=== PATIENT | male | born 1960 | race Caucasian/White ===

== ENCOUNTER 2016-08-09 08:30 | Day surgery (SDC) | payer BC ==
--- NOTE | ~2016-08-09 | EGD ---
EGD REPORT [facility] [address] [place] [address] NAME: REJI ANN : [birth year] [place]US : [place] [facility] [place] [id number] AGE: 56 ADM/REG DATE : 08/09/16 MR#: [id number] REPORT SERV DATE: 08/09/16 DICTATED BY: CARLOS MILLER DATE: 08/09/16 REPORT STATUS : Draft [facility] DATE: 08/09/16 Endoscopy Center Patient Name: Reji Ann Date of : 1960 Attending MD: CARLOS MILLER MD Procedure Date No Time: 08/09/2016 Procedure: Colonoscopy Indications: High risk colon cancer surveillance: Personal history of colonic polyps Referring MD: DEANDRA CADE MD Medicines: as per anesthesia Complications: No immediate complications. Procedure: Pre-Anesthesia Assessment: - ASA Grade Assessment: II - A patient with mild systemic disease. After I obtained informed consent, the scope was passed under direct vision. Throughout the procedure, the patient's blood pressure, pulse, and oxygen saturations were monitored continuously. The PCF [id number] was introduced through the anus and advanced to the cecum, identified by appendiceal orifice and ileocecal valve. The colonoscopy was performed without difficulty. The patient tolerated the procedure well. The quality of the bowel preparation was adequate to identify polyps. Findings: The perianal and digital rectal examinations were normal. A few small and large-mouthed diverticula were found in the sigmoid colon. Internal hemorrhoids were found during endoscopy and were mild. Impression: - Diverticulosis in the sigmoid colon. - Internal hemorrhoids. Recommendation: - Repeat colonoscopy in 5 years for surveillance. Procedure Code(s): --- Professional --- 56958, Colonoscopy, flexible, proximal to splenic flexure; diagnostic, with or without collection of specimen(s) by brushing or washing, with or without colon decompression (separate procedure) Diagnosis Code(s): --- Professional --- K64.8, Other hemorrhoids K57.30, Diverticulosis of large intestine without EGD REPORT [facility] [address] [place] [address] [place] [address] NAME: REJI ANN : [birth year] [place] [facility] [place]#: [id number] AGE: 56 ADM/REG DATE : 08/09/16 MR#: [id number] REPORT SERV DATE: 08/09/16 DICTATED BY: CARLOS MILLER. DATE: 08/09/16 REPORT STATUS : Draft TRANSCRIBED BY: [employer] DATE: 08/09/16 perforation or abscess without bleeding Z86.010, Personal history of colonic polyps CPT copyright 2013 [employer]. All rights reserved. The codes documented in this report are preliminary and upon basket braider review may be revised to meet current compliance requirements. CARLOS MILLER MD 08/09/2016 11:03 AM This report has been signed electronically. Number of Addenda: 0 Note Initiated On: 08/09/2016 10:17 AM Scope Withdrawal Time 0 hours 13 minutes [address] [place] [address] [place] [address]
--- NOTE | ~2016-08-09 | EGD ---
EGD REPORT [facility] [address] [place] [address] NAME: REJI ANN : [birth year] STATUS : REG [facility] [place] PAT#: [id number] AGE: 56 ADM/REG DATE : 08/09/16 MR#: [id number] REPORT SERV DATE: 08/09/16 DICTATED BY: CARLOS MILLER DATE: 08/09/16 REPORT STATUS : Draft TRANSCRIBED BY: [facility] DATE: 08/09/16 Endoscopy Center Patient Name: Reji Ann Date of : 1960 Attending MD: CARLOS MILLER MD Procedure Date No Time: 08/09/2016 Procedure: Upper GI endoscopy Indications: Dysphagia Referring MD: DEANDRA CADE MD Medicines: as per anesthesia Complications: No immediate complications. Procedure: Pre-Anesthesia Assessment: - ASA Grade Assessment: II - A patient with mild systemic disease. - ASA Grade Assessment: II - A patient with mild systemic disease. - ASA Grade Assessment: II - A patient with mild systemic disease. After obtaining informed consent, the endoscope was passed under direct vision. Throughout the procedure, the patient's blood pressure, pulse, and oxygen saturations were monitored continuously. The GIF H190 [id number] was introduced through the mouth, and advanced to the third part of duodenum. The upper GI endoscopy was accomplished without difficulty. The upper GI endoscopy was accomplished without difficulty. The patient tolerated the procedure well. Findings: A moderate Schatzki ring (acquired) was found at the gastroesophageal junction. The scope was withdrawn. Dilation was performed with a George dilator with no resistance at 48 Fr. The entire examined stomach was normal. The cardia and gastric fundus were normal on retroflexion. Localized mild inflammation characterized by erythema was found in the duodenal bulb. Impression: - Moderate Schatzki ring. Dilated. - Normal stomach. - Duodenitis. Recommendation: - Continue present medications. Procedure Code(s): --- Professional --- 97556, Esophagogastroduodenoscopy, flexible, transoral; EGD REPORT [facility] [address] [place] [address] NAME: REJI ANN : [birth year] STATUS : REG [facility]#: [id number] AGE: 56 ADM/REG DATE : 08/09/16 MR#: [id number] REPORT SERV DATE: 08/09/16 DICTATED BY: CARLOS MILLER. DATE: 08/09/16 REPORT STATUS : Draft TRANSCRIBED BY: [facility] DATE: 08/09/16 diagnostic, including collection of specimen(s) by brushing or washing, when performed (separate procedure) 27524, Dilation of esophagus, by unguided sound or bougie, single or multiple passes Diagnosis Code(s): --- Professional --- K22.2, Esophageal obstruction K29.80, Duodenitis without bleeding R13.10, Dysphagia, unspecified CPT copyright 2013 [employer]. All rights reserved. The codes documented in this report are preliminary and upon professional fee coder review may be revised to meet current compliance requirements. CARLOS MILLER MD 08/09/2016 10:39 AM This report has been signed electronically. Number of Addenda: 0 Note Initiated On: 08/09/2016 10:18 AM Scope Withdrawal Time 0 hours 0 minutes 0 seconds [id number] [place] [address]
[~2016-08-09 08:30] MED LIST: ASAB PO; DSS PO; FISH-EPA1000 MG PO; MULTIPLE VIT PO; NEXIUM40 PO; NIACIN 500 PO; VYTORIN 10/40 T1 TAB PO; Z100 PO
== END 2016-08-09 23:59 | disposition home or self-care (01) ==
LOC: DMU 08:30
PROVIDERS: Internal Medicine Gastroenterology
PROC: 0DJD8ZZ Inspection of Lower Intestinal Tract, Via Natural or Artificial Opening Endoscopic (ICD-10-PCS; principal; 2016-08-09 12:00)
PROC: 0D747ZZ Dilation of Esophagogastric Junction, Via Natural or Artificial Opening (ICD-10-PCS; 2016-08-09 12:00)
DX: Z12.11 Encounter for screening for malignant neoplasm of colon (principal); K64.8 Other hemorrhoids; K57.30 Diverticulosis of large intestine without perforation or abscess without bleeding; K22.2 Esophageal obstruction; K29.80 Duodenitis without bleeding; R13.10 Dysphagia, unspecified; Z86.010 Personal history of colon polyps; K21.9 Gastro-esophageal reflux disease without esophagitis; M10.9 Gout, unspecified; Z87.891 Personal history of nicotine dependence; E78.00 Pure hypercholesterolemia, unspecified; Z85.46 Personal history of malignant neoplasm of prostate; N35.9 Urethral stricture, unspecified; Z79.899 Other long term (current) drug therapy; Z79.82 Long term (current) use of aspirin